=== PATIENT | male | born 1975 | race Two or more races ===

== ENCOUNTER 2018-11-09 13:32 | Outpatient (CLI) | payer BC ==
[~2018-11-09] VITALS: Ht 180.3 cm; Wt 109.8 kg
[2018-11-09 14:00] VITALS: BP 102/78
--- NOTE | 2018-11-09 16:00 | Consultation ---
DATE OF CONSULTATION: 11/09/2018 CHIEF COMPLAINT: Nausea, vomiting, recent diagnosis of diverticulitis. HISTORY OF PRESENT ILLNESS: The patient is a very pleasant 43-year-old male, who was referred to us for history of diverticulitis, needing colonoscopy. Also he is complaining of chronic GERD, abdominal pain vomiting every morning. PAST MEDICAL HISTORY: 1. Hypertension. 2. Diverticulitis. PAST SURGICAL HISTORY: None. MEDICATIONS: Lisinopril, simvastatin, vitamin D. ALLERGIES: No known drug allergies. FAMILY HISTORY: Mother had breast cancer, thyroid cancer. Father had prostate cancer. SOCIAL HISTORY: The patient occasionally drinks alcohol, also smokes. He also uses CBD oil and oral marijuana. PHYSICAL EXAMINATION: VITAL SIGNS: Temperature 97.2, pulse is 105, respirations 20, blood pressure is 102/70. HEENT: Normocephalic and atraumatic. Sclerae anicteric. NECK: Supple. No evidence of lymphadenopathy. CARDIOVASCULAR: Regular rate and rhythm. Plus S1 and S2. No obvious murmur. LUNGS: Clear to auscultation bilaterally. ABDOMEN: Positive bowel sounds. Soft and nontender. No rebound. No guarding. No peritoneal sign. EXTREMITIES: No cyanosis, no clubbing, no edema. ASSESSMENT AND PLAN: The patient is a 43-year-old male with diverticulitis, needs colonoscopy to rule out malignancy. Pending authorization from the insurance. The patient also most probably would need a endoscopy given chronic GERD, vomiting every morning, abdominal pain. Plan to obtain authorization for both and schedule accordingly. Randy Orellana M.D. DR: Jose Luis JOB#: [id number] CC:
[2018-11-10] MEDS ORDERED: VITAMIN D1000 UNI1 ORAL (11:29)
[2018-11-10] MEDS ORDERED: SIMVASTATIN10 MG ORAL (11:29)
[2018-11-10] MEDS ORDERED: LISINOPRIL5 MG ORAL (11:29)
== END 2018-11-09 15:31 | disposition home or self-care (01) ==
LOC: PAN 13:32
DX: R11.2 Nausea with vomiting, unspecified (principal); K21.9 Gastro-esophageal reflux disease without esophagitis; R10.9 Unspecified abdominal pain; I10 Essential (primary) hypertension; Z79.899 Other long term (current) drug therapy; K57.90 Diverticulosis of intestine, part unspecified, without perforation or abscess without bleeding

== ENCOUNTER 2018-12-05 09:15 | Day surgery (SDC) | payer BC ==
[~2018-12-05] VITALS: Ht 180.3 cm; Wt 104.8 kg
[2018-12-05] VITALS (8 sets, daily range): BP systolic 129–139; BP diastolic 74–90
--- NOTE | 2018-12-05 06:53 | Anethesia Preoperative Eval ---
Anesthesia Pre-op PMH/ROS General Date of Evaluation: Dec 05, 2018 Time of Evaluation: 06:51 Anesthesiologist: joon ASA Score: ASA 3 Mallampati Score Class I : Soft palate, uvula, fauces, pillars visible Class II: Soft palate, uvula, fauces visible Class III: Soft palate, base of uvula visible Class IV: Only hard plate visible Mallampati Classification: Class II Surgeon: vishal Diagnosis: gerd, diverticulitis Surgical Procedure: egd/colonoscopy Anesthesia History: none Social History: current smoker, alcohol use, drug use - marijuana Family History: no anesthesia problems Allergies: Coded Allergies: ERYTHROMYCIN BASE (Verified Allergy, Severe, hallucinations, 12/05/18) Medications: see eMAR Patient NPO?: Yes Past Medical History Cardiovascular: Reports: HTN, other - hypercholesterolemia Other: obesity Anesthesia Pre-op Phys. Exam Physician Exam Constitutional: NAD Neurologic: CN 2-12 intact Cardiovascular: RRR Respiratory: CTA Gastrointestinal: S/NT/ND Airway Exam Mallampati Score: Class II MO: limited Neck: flexible TMD: 2fb ROM: limited Anesthesia Pre-op A/P Studies Pre-op Studies: EKG - nsr w/ rbbb Risk Assessment & Plan Assessment: asa3 Plan: mac Status Change Before Surgery: No Pre-Antibiotics Drug: Nelly Hunter MD Dec 05, 2018 06:53
[~2018-12-05 09:15] MED LIST: Atropine Inj 1mg/10ml Syr IV PRN; DiphenhydrAMINE 50mg/ml Inj IVP PRN; LISINOPRIL5 MG ORAL; LR 1000ml 1,000 ML IVLG SCH; Midazolam 2mg/2ml Inj IVP PRN; SIMVASTATIN10 MG ORAL; VITAMIN D1000 UNI1 ORAL; fentaNYL 100 mcg/2 mL IV PRN
--- NOTE | 2018-12-05 10:13 | Pre-Procedure Note/Attestation ---
Pre-Procedure Note/Attestation Complete Prior to Procedure Planned Procedure: not applicable Procedure Narrative: esophagogastroduodenoscopy and colonoscopy Attestation I attest that I discussed the nature of the procedure; its benefits; risks and complications; and alternatives (and the risks and benefits of such alternatives ), prior to the procedure, with the patient (or the patient's legal premium service representative). I attest that, if there was a reasonable possibility of needing a blood transfusion, the patient (or the patient's legal premium service representative) was given the [facility] standardized written summary, pursuant to the [place] Blood Safety Act ([place] Health and Safety Code # 1645, as amended). I attest that I re-evaluated the patient just prior to the surgery and that there has been no change in the patient's H&P, except as documented below: Randy Orellana MD Dec 05, 2018 10:13
--- NOTE | 2018-12-05 10:13 | Short Stay Surgery H&P ---
History of Present Illness History of Present Illness Chief Complaint see recent office note HPI Chadd Pimentel Jr is a 43 year old male who was admitted on for Gerd, Diverticulitis, Encounter For Screening For Patient History Allergies: Coded Allergies: ERYTHROMYCIN BASE (Verified Allergy, Severe, hallucinations, 12/05/18) Medication History Scheduled Cholecalciferol (Vitamin D3)* (Vitamin D*), Unknown Dose ORAL ONCE A WEEK, ( Reported) Lisinopril (Lisinopril*), Unknown Dose ORAL DAILY, (Reported) Discontinued Medications Simvastatin (Zocor), Unknown Dose ORAL BEDTIME, (Reported) Discontinued Reason: Pt stopped taking med Plan Attestation Are the patient's medical conditions optimized for surgery? Randy Orellana MD Dec 05, 2018 10:13
[2018-12-05] MEDS ORDERED: Lidocaine 1% MPF 10mg/ml 5ml ONE (10:30)
[2018-12-05] MEDS ORDERED: Propofol 200mg/20ml IV ONE (10:30)
--- NOTE | 2018-12-05 12:05 | Endoscopy Procedure Note ---
Endoscopy Procedure Note General Indication for Procedure: GERD, abd pain Procedures Performed: EGD, colonoscopy Operative Findings/Diagnosis: gastritis, colon polyp Specimen: yes Pt Tolerated Procedure Well: Yes Estimated Blood Loss: none Anesthesia Anesthesiologist: joon Anesthesia: MAC Inserted Devices Implant(s) used?: No Quality Quality of Bowel Preparation: Poor Why scope didn't reach cecum: Bowel preparation poor Was there any complications?: No GI Core Measures 50 yrs or older w/o bx or poly: No 10yrs. F/U recommended: Yes If not recommended, why?: Above average risk 18 years or older w/prev. colo: No Randy Orellana MD Dec 05, 2018 12:05
--- NOTE | 2018-12-05 13:32 | Immediate Post-Op Evaluation ---
Immediate Post-Op Evalulation Immediate Post-Op Evalulation Procedure: egd/colonoscopy/bx Date of Evaluation: Dec 05, 2018 Time of Evaluation: 12:07 IV Fluids: 700ml 0.9ns Blood Products: none Estimated Blood Loss: negligible Blood Pressure Systolic: 129 Blood Pressure Diastolic: 82 Pulse Rate: 80 Respiratory Rate: 18 O2 Sat by Pulse Oximetry: 100 Temperature (Fahrenheit): 97.9 Pain Score (1-10): 0 Nausea: No Vomiting: No Complications none Patient Status: awake, reacts, patent Hydration Status: adequate Drug: Nelly Hunter MD Dec 05, 2018 13:32
--- NOTE | 2018-12-05 13:34 | 48 Hour Post Anesthesia Eval ---
Post Anesthesia Evaluation Procedure: egd/colonoscopy/bx Date of Evaluation: Dec 05, 2018 Time of Evaluation: 12:09 Blood Pressure Systolic: 139 0: 90 Pulse Rate: 77 Respiratory Rate: 18 Temperature (Fahrenheit): 97.9 O2 Sat by Pulse Oximetry: 100 Airway: patent Nausea: No Vomiting: No Pain Intensity: 0 Hydration Status: adequate Cardiopulmonary Status: stable Mental Status/LOC: patient returned to baseline Post-Anesthesia Complications: none Follow-up care needed: N/A Nelly Sheppard MD Dec 05, 2018 13:34
--- NOTE | 2018-12-05 16:45 | Procedure Note ---
DATE OF PROCEDURE: 12/05/2018 SURGEON: Randy Orellana M.D. PROCEDURE: Upper endoscopy with biopsy, colonoscopy with biopsy, and polypectomy. ANESTHESIA: Per Dr. Daniels. INSTRUMENT: Olympus adult flexible upper endoscope and colonoscope. INDICATION: Chronic GERD, screening colonoscopy evaluation. REASON FOR PROCEDURE: The procedure, risks, benefits, and possible consequences, including hemorrhage, aspiration, perforation and infection, and alternative treatments, were explained to the patient/legal guardian by Dr. Randy Orellana and the patient/legal guardian understood and accepted these risks. DESCRIPTION OF PROCEDURE: After informed consent was obtained and the patient was adequately sedated, Olympus upper endoscope was advanced from mouth into the second portion of the duodenum and retroflexion was performed in the stomach. The patient had evidence of duodenal polyp at the second portion of duodenum. This polyp was hard to say exactly the size of it. It seems that there was a little bit of submucosal involvement and because this area was little bit raised and there was a polyp on the top, we biopsied this area with multiple biopsies and sent to pathology. The patient had also evidence of gastritis. Random biopsy from antrum was obtained to rule out H. pylori infection. Of note, the patient had some retained food material in the stomach making examination of the stomach limited. At this time, the upper endoscope was retrieved. The patient was turned over for colonoscopy. First, rectal exam was performed, which was normal. Then, the scope was advanced from rectum into the sigmoid colon. We could not pass the adult scope. Significant diverticulosis and anatomy was challenging. Before we changed the scope, we saw a polyp in the sigmoid colon, pedunculated, inflammatory looking, measured roughly about 6 mm, removed with hot snare polypectomy technique. At this time, we decided to switch the upper endoscope to pass the area in the sigmoid, which was narrowed. We were able to get to the mid transverse colon, but the prep was so poor. We could not advance beyond this point. So, we started pulling out the scope gradually. In the area of the sigmoid colon at about 30 cm from the anal verge, there was an area of inflammation, swelling, diverticulosis. There was questionably polyp versus mass versus edema from peridiverticulitis and colitis. This area was also biopsied. Then the scope was returned back to the rectum. Retroflexion was performed showed evidence of internal hemorrhoids. SUMMARY OF FINDINGS: 1. Limited examination of the stomach given retained food material in the stomach. 2. Duodenal polyp, status post biopsy. 3. Gastritis, status post biopsy. 4. Incomplete colonoscopy examination secondary to poor prep. 5. Diverticulosis in the left colon. 6. Rectosigmoid polyp, status post polypectomy. 7. An area of inflammation with edema questionable of polyp versus peridiverticulitis, colitis versus malignancy, which was biopsied. 8. Internal hemorrhoids. RECOMMENDATIONS: Follow up biopsy results and treat accordingly. The patient most probably would need a repeat colonoscopy with a better prep. Randy Orellana M.D. DR: GEOVANNI JOB#: [id number] CC:
--- NOTE | 2018-12-06 16:07 | Cardiology Report ---
APPROVED REPORT EKG Measurement Heart [id number] Normal sinus rhythm Right bundle branch block Abnormal ECG
== END 2018-12-05 12:45 | disposition home or self-care (01) ==
LOC: GAS 09:15
DX: Z12.11 Encounter for screening for malignant neoplasm of colon (principal); K21.9 Gastro-esophageal reflux disease without esophagitis; K31.7 Polyp of stomach and duodenum; K29.50 Unspecified chronic gastritis without bleeding; K57.90 Diverticulosis of intestine, part unspecified, without perforation or abscess without bleeding; K63.5 Polyp of colon; K64.8 Other hemorrhoids; I10 Essential (primary) hypertension; E78.00 Pure hypercholesterolemia, unspecified; E66.9 Obesity, unspecified; I45.10 Unspecified right bundle-branch block; Z68.32 Body mass index [BMI] 32.0-32.9, adult; K29.80 Duodenitis without bleeding
CPT/HCPCS: 43239; 45380; 45385; 93005; J2704; 94003; 94150